=== PATIENT | female | born 1955 | race African-American/Black ===

== ENCOUNTER 2017-06-06 21:12 | Emergency (ER) | payer MEDICAID ==
[2017-06-06 21:25] VITALS: BP 134/78
[2017-06-06 23:09] LABS: BASOPHILS % 0.9 % (0.0-2.0); EOSINOPHILS % 4.6 % (0.0-5.0); HEMATOCRIT. 37.7 % (36.0-48.0); HEMOGLOBIN. 12.6 g/dL (12.0-16.0); LYMPHOCYTES % 31.7 % (20.0-50.0); MEAN CORPUSCULAR HEMOGLOBIN 28.8 pg (28.0-32.0); MEAN CORPUSCULAR VOLUME 86.4 fL (81.0-99.0); MEAN PLATELET VOLUME 8.8 fl (7.4-10.4); MONOCYTES % 10.2 % (2.0-8.0); NEUTROPHILS % 52.6 % (40.0-76.0); PLATELET 218 x1000/uL (130-400); RED BLOOD CELL COUNT 4.36 mill/uL (4.2-5.4); RED CELL DISTRIBUTION WIDTH 14.1 % (11.6-14.6)
[2017-06-06 23:16] LABS: CHLORIDE 107 mEq/L (98-107)
[2017-06-06 23:18] LABS: PROTHROMBIN TIME 10.7 sec (9.4-11.6)
[2017-06-06 23:27] LABS: TROPONIN I < 0.02 ng/mL (0.00-0.04)
== END 2017-06-07 00:14 | disposition home or self-care (01) ==
LOC: ER 22:22
DX: R05 Cough (principal); R07.89 Other chest pain
CPT/HCPCS: 36415; 70360; 71046; 80053; 83880; 84484; 85025; 85610; 93005; 99285

== ENCOUNTER 2018-01-18 05:22 | Emergency (ER) | payer MEDICAID ==
[~2018-01-18] VITALS: Ht 157.5 cm; Wt 72.2 kg
[2018-01-18] MEDS ORDERED: SODIUM CHLORIDE 0.9% 1,000 ML IV ONE (05:45)
[2018-01-18 06:32] LABS: BASOPHILS % 0.6 % (0.0-2.0); EOSINOPHILS % 3.6 % (0.0-5.0); HEMATOCRIT. 39.6 % (36.0-48.0); HEMOGLOBIN. 13.4 g/dL (12.0-16.0); LYMPHOCYTES % 42.4 % (20.0-50.0); MEAN CORPUSCULAR HEMOGLOBIN 29.5 pg (28.0-32.0); MEAN CORPUSCULAR VOLUME 87.1 fL (81.0-99.0); MEAN PLATELET VOLUME 8.9 fl (7.4-10.4); MONOCYTES % 9.3 % (2.0-8.0); NEUTROPHILS % 44.1 % (40.0-76.0); PLATELET 209 x1000/uL (130-400); RED BLOOD CELL COUNT 4.55 mill/uL (4.2-5.4); RED CELL DISTRIBUTION WIDTH 13.6 % (11.6-14.6)
[2018-01-18 06:39] LABS: CLARITY URINE CLEAR (CLEAR); COLOR URINE YELLOW (YELLOW); KETONES URINE NEGATIVE (NEGATIVE); LEUKOCYTE ESTERASE URINE NEGATIVE (NEGATIVE); NITRITE URINE NEGATIVE (NEGATIVE); OCCULT BLOOD URINE NEGATIVE (NEGATIVE); PH URINE 5.5 (4.5-8.0); PROTEIN URINE NEGATIVE (NEGATIVE); SPECIFIC GRAVITY URINE 1.012 (1.005-1.030); UROBILINOGEN URINE 0.2 E.U./dL (0.2-1.0)
[2018-01-18 06:45] LABS: PROTHROMBIN TIME 10.1 sec (9.1-11.1)
[2018-01-18 06:52] LABS: CHLORIDE 108 mEq/L (98-107)
[2018-01-18 08:01] VITALS: BP 118/71
== END 2018-01-18 08:01 | disposition home or self-care (01) ==
LOC: ER 05:22
DX: R53.1 Weakness (principal); M79.662 Pain in left lower leg; R03.0 Elevated blood-pressure reading, without diagnosis of hypertension
CPT/HCPCS: 36415; 71045; 80053; 81003; 85025; 85610; 93005; 99285; J7030; Z7610